=== PATIENT | female | born 1990 | race Caucasian/White ===

== ENCOUNTER 2020-03-10 12:43 | Outpatient (CLI) | payer OTHER ==
--- NOTE | 2020-03-10 16:25 | MRI ---
MRI BRAIN WITH AND WITHOUT CONTRAST: INDICATION: Bipolar affective disorder. FINDINGS: Ventricles have normal size and position. There is no evidence of restricted diffusion. There is no evidence of mass or edema. There is no white matter abnormality. No abnormal enhancement. Intracranial internal carotid arteries and cerebral arteries showed normal flow voids. Dural venous sinuses are patent. Mild mucosal edema in the right frontal air cell. Paranasal sinuses otherwise appear clear. IMPRESSION: Unremarkable MRI of brain. POS: [facility]
== END 2020-03-10 12:44 | disposition home or self-care (01) ==
LOC: SCSMRI 12:43
PROVIDERS: ATTEND Family Medicine Sports Medicine
DX: F31.2 Bipolar disorder, current episode manic severe with psychotic features (principal)
CPT/HCPCS: 70553